=== PATIENT | male | born 1935 | race Caucasian/White ===

== ENCOUNTER 2017-12-22 11:45 | Emergency (ER) | payer MEDICARE, OTHER ==
[2017-12-22 13:53] LABS: Hematocrit 34 % (42-52); Hemoglobin 11.2 g/dl (14.0-18.0); Mean Corpuscular HGB Conc 33 g/dl (31-36); Mean Corpuscular Hemoglobin 29 pg (27-31); Mean Corpuscular Volume 86 fL (80-94); Mean Platelet Volume 9 um3 (7.4-10.4); Platelet Count 220 10^3/ul (150-450); Red Blood Count 3.94 10^6/ul (4.0-5.4); Red Cell Distribution Width 14 % (10.5-15); White Blood Count 11.5 10^3/ul (3.5-10.8)
[2017-12-22 14:09] LABS: EGFR Non-African American 31.2 (>60)
--- NOTE | 2017-12-22 15:51 | RAD ---
HISTORY: Left rib pain, status post trauma COMPARISONS: None TECHNIQUE: Multiple contiguous axial CT scans were obtained of the chest, abdomen, and pelvis, without intravenous contrast enhancement. Coronal and sagittal multiplanar reformations are submitted for review.. Oral contrast was not administered. FINDINGS: The study is limited by the lack of intravenous contrast. This limits evaluation of the solid organs and vasculature. CHEST NECK AND THYROID: The lower neck and thyroid are unremarkable. CHEST WALL: There is no lower cervical, axillary, or supraclavicular lymphadenopathy by size criteria. HEART AND PERICARDIUM: The heart is unremarkable. AORTA AND PULMONARY VASCULATURE: The aorta and pulmonary vasculature are normal. MEDIASTINUM: There is no mediastinal lymphadenopathy by size criteria. JANETT: Evaluation of the janett is limited by the lack of intravenous contrast. There is no obvious hilar lymphadenopathy by size criteria. AIRWAY AND ESOPHAGUS: The airway is unremarkable, without endobronchial filling defect. The esophagus is grossly normal. LUNG PARENCHYMA: There is linear pleural parenchymal scarring of the superior segment of the right lower lobe. PLEURA: No pleural abnormalities are noted. BONES AND SOFT TISSUES: Degenerative changes are noted of the spine. ABDOMEN/PELVIS: LIVER: The liver is normal in shape, size, contour, and attenuation. BILE DUCTS: There is no intrahepatic or extrahepatic biliary dilatation. GALLBLADDER: The gallbladder is normal, without pericholecystic inflammatory change. PANCREAS: The pancreas is normal, without mass or ductal dilatation. SPLEEN: Normal in size and appearance. UPPER GI TRACT: Evaluation of the gastrointestinal tract is limited by incomplete gastric distention. The upper GI tract is unremarkable. SMALL BOWEL & MESENTERY: The small bowel is normal in contour, course, and caliber. There is no obstruction or dilatation. COLON: The colon is normal in contour, course, caliber. There is no pericolonic inflammatory change. ADRENALS: Normal bilaterally. KIDNEYS: The parapelvic cyst is noted on the right. There is no appreciable hydronephrosis or nephrolithiasis. BLADDER: The bladder is smooth in contour. PELVIC ORGANS: The prostate is diffusely enlarged. The seminal vesicles are symmetric. AORTA: There is calcific atherosclerotic disease of the abdominal aorta and its branches, without aneurysmal dilatation IVC: Unremarkable LYMPH NODES: There is no lymphadenopathy by size criteria. ABDOMINAL WALL: There is no evidence for abdominal wall hernia. BONES AND SOFT TISSUES: Degenerative changes are noted. OTHER: None IMPRESSION: 1. NO ACUTE CT PATHOLOGY OF THE CHEST. 2. ENLARGED PROSTATE. 3. NO ACUTE CT PATHOLOGY OF THE ABDOMEN AND PELVIS.
[2017-12-22] MEDS ORDERED: traMADol TAB* 50 MG PO ONE (16:25)
[2017-12-22 17:04] VITALS: BP 142/77
--- NOTE | 2017-12-22 22:17 | ED ---
Chan Wheeler Thomas, scribed for Yanet Clement MD on 12/22/17 at 1552 . Complex/Multi-Sys Presentation - HPI Summary HPI Summary: The patient is an 82 year old male presenting to the emergency department complaining of left posterior rib cage pain that began yesterday after he slipped and fell on the ice and landed on his left side. The pain is constant. The pain is rated 10/10. The pain is aggravated by movement and is alleviated by nothing. The patient additionally complains of bloatedness. The patient denies fever, eye erythema, ear ache, shortness of breath, abdominal pain, dysuria, hematuria, edema, neck pain, rashes, bruises, headache, anxiety, and depression. He is on Eliquis. - History Of Current Complaint Chief Complaint: EDChestWallPain Time Seen by Provider: 12/22/17 12:49 Hx Obtained From: Patient Onset/Duration: Lasting Days - 1, Still Present Timing: Constant Severity Initially: Severe Location: Pain At: - left posterior rib cage Aggravating Factor(s): Movement Alleviating Factor(s): Nothing Associated Signs And Symptoms: Positive: Other - Left posterior rib cage pain, bloatedness; NEGATIVE: fever, eye erythema, ear ache, shortness of breath, abdominal pain, dysuria, hematuria, edema, neck pain, rashes, bruises, headache , anxiety, and depression - Allergies/Home Medications Allergies/Adverse Reactions: Allergies Allergy/AdvReac Type Severity Reaction Status Date / Time No Known Allergies Allergy Verified 12/22/17 12:12 PMH/Surg Hx/FS Hx/Imm Hx Sensory History: Denies: Hx Deafness Opthamlomology History: Denies: Hx Legally Blind EENT History: Denies: Hx Deafness - Immunization History Immunizations Up to Date: Yes Infectious Disease History: No Infectious Disease History: Denies: Traveled Outside the [place] in Last 30 Days - Family History Known Family History: Positive: Other - Patient denies relevant FHx - Social History Alcohol Use: None Substance Use Type: Reports: None Smoking Status (MU): Never Smoked Tobacco Review of Systems Negative: Fever Negative: Erythema Negative: Ear Ache Negative: Chest Pain Negative: Shortness Of Breath Positive: Other - Bloatedness. Negative: Abdominal Pain Negative: dysuria, hematuria Positive: Other - Rib cage pain; NEGATIVE: neck pain. Negative: Edema Negative: Rash, Bruising Negative: Headache Negative: Anxious, Depressed All Other Systems Reviewed And Are Negative: No Physical Exam - Summary Physical Exam Summary: Appearance: Alert, conversive, nontoxic appearing Skin: Warm, dry, no mottling, no rashes, no contusions HEENT: EOMI, PERRL, moist mucous membranes Neck: No masses on the neck, supple Respiratory: Clear to auscultation, breath sounds present, no rales, no rhonchi , no wheezes Cardiovascular: RRR, pulses are symmetrical in both lower and upper extremities Chest and Trunk: To the false ribs on the left, the posterior aspect is exquisitely tender. There is tenderness to the left inferior chest wall. Abdomen: Soft, non-tender Bowel Sounds: Present Musculoskeletal: No CVA tenderness, no obvious deformity, moving all extremities in a grossly normal manner Extremities: There is an abrasion to the left elbow. There is no bruising. Neurological: A&Ox3, CN II-XII Intact, moving all extremities symmetrically Psychiatric: Normal affect and mood Triage Information Reviewed: Yes Vital Signs On Initial Exam: Initial Vitals Temp Pulse Resp BP Pulse Ox 99.1 F 57 20 164/62 95 12/22/17 12:07 12/22/17 12:07 12/22/17 12:07 12/22/17 12:07 12/22/17 12:07 Vital Signs Reviewed: Yes Diagnostics - Vital Signs Vital Signs Temp Pulse Resp BP Pulse Ox 12/22/17 12:07 99.1 F 57 20 164/62 95 - Laboratory Lab Results: Lab Results 12/22/17 12/22/17 Range/Units 13:45 13:45 WBC 11.5 H (3.5-10.8) 10^3/ul RBC 3.94 L (4.0-5.4) 10^6/ul Hgb 11.2 L (14.0-18.0) g/dl Hct 34 L (42-52) % MCV 86 (80-94) fL MCH 29 (27-31) pg MCHC 33 (31-36) g/dl RDW 14 (10.5-15) % Plt Count 220 (150-450) 10^3/ul MPV 9 (7.4-10.4) um3 Sodium 136 (133-145) mmol/L Potassium 4.5 (3.5-5.0) mmol/L Chloride 103 (101-111) mmol/L Carbon Dioxide 24 (22-32) mmol/L Anion Gap 9 (2-11) mmol/L BUN 43 H (6-24) mg/dL Creatinine 2.06 H (0.67-1.17) mg/dL Est GFR ( Amer) 40.2 (>60) Est GFR (Non-Af Amer) 31.2 (>60) BUN/Creatinine Ratio 20.9 H (8-20) Glucose 102 H (70-100) mg/dL Calcium 9.4 (8.6-10.3) mg/dL Total Bilirubin 0.40 (0.2-1.0) mg/dL AST 20 (13-39) U/L ALT 16 (7-52) U/L Alkaline Phosphatase 59 (34-104) U/L Total Protein 7.1 (6.4-8.9) g/dL Albumin 4.0 (3.2-5.2) g/dL Globulin 3.1 (2-4) g/dL Albumin/Globulin Ratio 1.3 (1-3) Result Diagrams: 12/22/17 13:45 12/22/17 13:45 Lab Statement: Any lab studies that have been ordered have been reviewed, and results considered in the medical decision making process. - CT CT Chest/Abd/Pel CT Interpretation: No Acute Changes - 1. NO ACUTE CT PATHOLOGY OF THE CHEST. 2. ENLARGED PROSTATE. 3. NO ACUTE CT PATHOLOGY OF THE ABDOMEN AND PELVIS. Dr. Clement has reviewed this report. CT Interpretation Completed By: Radiologist Complex Multi-Symp Course/Dx Assessment/Plan: The patient is an 82 year old male presenting to the emergency department complaining of left posterior rib cage pain that began yesterday after he slipped and fell on the ice and landed on his left side. The patient was given Ultam. Bloodwork was obtained. CT Chest/Abdomen/Pelvis shows 1. NO ACUTE CT PATHOLOGY OF THE CHEST. 2. ENLARGED PROSTATE. 3. NO ACUTE CT PATHOLOGY OF THE ABDOMEN AND PELVIS. The patient is discharged home with diagnosis of soft tissue injury and contusion. - Diagnoses Provider Diagnoses: Soft tissue injury, Contusion Discharge - Discharge Plan Condition: Stable Disposition: HOME Prescriptions: traMADol TAB* [Ultram*] 50 mg PO Q6HR PRN #20 tab MDD 4 PRN Reason: Pain Patient Education Materials: Fall Prevention for Older Adults (ED), Chest Wall Pain (ED) Referrals: Non Staff,Doctor [Primary Care Provider] - Additional Instructions: follow up with your primary care physician. return if worse or any new symptoms. Take the tramadol for pain. The documentation as recorded by the Chan headley Thomas accurately reflects the service I personally performed and the decisions made by , Yanet Clement MD.
== END 2017-12-22 17:00 | disposition home or self-care (01) ==
LOC: ED 11:45
DX: S20.212A Contusion of left front wall of thorax, initial encounter (principal); W00.0XXA Fall on same level due to ice and snow, initial encounter; Y92.9 Unspecified place or not applicable
CPT/HCPCS: 36415; 71250; 74176; 80053; 85027; 99282

== ENCOUNTER 2017-12-25 17:46 | Emergency (ER) | payer MEDICARE, OTHER ==
[2017-12-25 21:59] LABS: ABS Basophils 0.1 10^3/ul (0-0.2); ABS Eosinophils 0.2 10^3/ul (0-0.6); ABS Lymphocytes 2.4 10^3/ul (1.0-4.8); ABS Monocytes 1.1 10^3/ul (0-0.8); ABS Neutrophils 7.9 10^3/ul (1.5-7.7); ABS Nucleated RBC 0 10^3/ul; Hematocrit 34 % (42-52); Hemoglobin 11.3 g/dl (14.0-18.0); Lymphocyte % 20.3 % (25-47); Mean Corpuscular HGB Conc 33 g/dl (31-36); Mean Corpuscular Hemoglobin 28 pg (27-31); Mean Corpuscular Volume 86 fL (80-94); Mean Platelet Volume 9 um3 (7.4-10.4); Nucleated Red Blood Cells % 0; Platelet Count 241 10^3/ul (150-450); Red Blood Count 3.98 10^6/ul (4.0-5.4); Red Cell Distribution Width 14 % (10.5-15); White Blood Count 11.6 10^3/ul (3.5-10.8)
[2017-12-25 22:16] LABS: INR 0.94 (0.77-1.02)
[2017-12-25 22:44] LABS: Urine Appearance Clear; Urine Blood Negative (Negative); Urine Color Yellow; Urine Ketones Negative (Negative); Urine Protein 2+(100 mg/dL) (Negative); Urine Specific Gravity 1.017 (1.010-1.030); Urine Urobilinogen Negative (Negative)
[2017-12-25] MEDS ORDERED: Mineral Oil ENEMA* 1 BOTTLE PR ONE (22:59)
[2017-12-26] MEDS ORDERED: Mineral Oil ENEMA* 1 BOTTLE PR ONE (01:55)
--- NOTE | 2017-12-26 02:41 | ED ---
Chan Wheeler Thomas, scribed for Gaudencio Adams on 12/25/17 at 2234 . GI/ HPI - HPI Summary HPI Summary: The patient is an 82 year old male presenting to the emergency department complaining of constipation that began 6 days ago. He attempted to manually decompact himself but was unsuccessful. He fell on the ice two days ago and injured his ribs. - History of Current Complaint Chief Complaint: EDGeneral Time Seen by Provider: 12/25/17 22:08 Stated Complaint: CONSTIPATION Hx Obtained From: Patient Onset/Duration: Started Days Ago - 6, Still Present Timing: Constant Severity: Moderate Current Severity: Moderate Pain Intensity: 0 Associated Signs and Symptoms: Positive: Other: - Constipation Aggravating Factor(s): Nothing Alleviating Factor(s): Nothing - Allergy/Home Medications Allergies/Adverse Reactions: Allergies Allergy/AdvReac Type Severity Reaction Status Date / Time No Known Allergies Allergy Verified 12/25/17 17:55 PMH/Surg Hx/FS Hx/Imm Hx Sensory History: Denies: Hx Legally Blind, Hx Deafness Opthamlomology History: Denies: Hx Legally Blind Infectious Disease History: No Infectious Disease History: Denies: Traveled Outside the [place] in Last 30 Days - Family History Known Family History: Positive: Other - Patient denies relevant FHx - Social History Alcohol Use: None Substance Use Type: Reports: None Smoking Status (MU): Never Smoked Tobacco Review of Systems Negative: Fever Positive: Other - Constipation All Other Systems Reviewed And Are Negative: Yes Physical Exam - Summary Physical Exam Summary: Appearance: Well appearing, no pain distress Skin: warm, dry, reflects adequate perfusion Head/face: normal Eyes: EOMI, ERYN ENT: normal Neck: supple, non-tender Respiratory: CTA, breath sounds present Cardiovascular: RRR, pulses symmetrical Abdomen: non-tender, soft Bowel: present Musculoskeletal: normal, strength/ROM intact Neuro: normal, sensory motor intact, A&Ox3 Triage Information Reviewed: Yes Vital Signs On Initial Exam: Initial Vitals Temp Pulse Resp BP Pulse Ox 98 F 58 16 162/64 97 12/25/17 17:55 12/25/17 17:55 12/25/17 17:55 12/25/17 17:55 12/25/17 17:55 Vital Signs Reviewed: Yes Diagnostics - Vital Signs Vital Signs Temp Pulse Resp BP Pulse Ox 12/25/17 20:00 99.3 F 52 16 188/67 98 12/25/17 17:55 98 F 58 16 162/64 97 - Laboratory Lab Results: Lab Results 12/25/17 12/25/17 12/25/17 Range/Units 21:40 21:40 21:40 WBC (3.5-10.8) 10^3/ul RBC (4.0-5.4) 10^6/ul Hgb (14.0-18.0) g/dl Hct (42-52) % MCV (80-94) fL MCH (27-31) pg MCHC (31-36) g/dl RDW (10.5-15) % Plt Count (150-450) 10^3/ul MPV (7.4-10.4) um3 Neut % (Auto) (38-83) % Lymph % (Auto) (25-47) % Aiken % (Auto) (1-9) % Eos % (Auto) (0-6) % Baso % (Auto) (0-2) % Absolute Neuts (auto) (1.5-7.7) 10^3/ul Absolute Lymphs (auto) (1.0-4.8) 10^3/ul Absolute Monos (auto) (0-0.8) 10^3/ul Absolute Eos (auto) (0-0.6) 10^3/ul Absolute Basos (auto) (0-0.2) 10^3/ul Absolute Nucleated RBC 10^3/ul Nucleated RBC % INR (Anticoag Therapy) 0.94 (0.77-1.02) APTT 30.5 (26.0-36.3) seconds Sodium 135 (133-145) mmol/L Potassium 4.1 (3.5-5.0) mmol/L Chloride 102 (101-111) mmol/L Carbon Dioxide 25 (22-32) mmol/L Anion Gap 8 (2-11) mmol/L BUN 34 H (6-24) mg/dL Creatinine 1.82 H (0.67-1.17) mg/dL Est GFR ( Amer) 46.3 (>60) Est GFR (Non-Af Amer) 36.0 (>60) BUN/Creatinine Ratio 18.7 (8-20) Glucose 82 (70-100) mg/dL Lactic Acid (0.5-2.0) mmol/L Calcium 9.4 (8.6-10.3) mg/dL Total Bilirubin 0.40 (0.2-1.0) mg/dL AST 18 (13-39) U/L ALT 15 (7-52) U/L Alkaline Phosphatase 54 (34-104) U/L Total Creatine Kinase 87 (10-223) U/L Troponin I 0.03 (<0.04) ng/mL B-Natriuretic Peptide 162 H ( - 100) pg/mL Total Protein 7.3 (6.4-8.9) g/dL Albumin 4.3 (3.2-5.2) g/dL Globulin 3.0 (2-4) g/dL Albumin/Globulin Ratio 1.4 (1-3) 12/25/17 12/25/17 Range/Units 21:40 21:43 WBC 11.6 H (3.5-10.8) 10^3/ul RBC 3.98 L (4.0-5.4) 10^6/ul Hgb 11.3 L (14.0-18.0) g/dl Hct 34 L (42-52) % MCV 86 (80-94) fL MCH 28 (27-31) pg MCHC 33 (31-36) g/dl RDW 14 (10.5-15) % Plt Count 241 (150-450) 10^3/ul MPV 9 (7.4-10.4) um3 Neut % (Auto) 67.5 (38-83) % Lymph % (Auto) 20.3 L (25-47) % Aiken % (Auto) 9.7 H (1-9) % Eos % (Auto) 2.0 (0-6) % Baso % (Auto) 0.5 (0-2) % Absolute Neuts (auto) 7.9 H (1.5-7.7) 10^3/ul Absolute Lymphs (auto) 2.4 (1.0-4.8) 10^3/ul Absolute Monos (auto) 1.1 H (0-0.8) 10^3/ul Absolute Eos (auto) 0.2 (0-0.6) 10^3/ul Absolute Basos (auto) 0.1 (0-0.2) 10^3/ul Absolute Nucleated RBC 0 10^3/ul Nucleated RBC % 0 INR (Anticoag Therapy) (0.77-1.02) APTT (26.0-36.3) seconds Sodium (133-145) mmol/L Potassium (3.5-5.0) mmol/L Chloride (101-111) mmol/L Carbon Dioxide (22-32) mmol/L Anion Gap (2-11) mmol/L BUN (6-24) mg/dL Creatinine (0.67-1.17) mg/dL Est GFR ( Amer) (>60) Est GFR (Non-Af Amer) (>60) BUN/Creatinine Ratio (8-20) Glucose (70-100) mg/dL Lactic Acid 0.7 (0.5-2.0) mmol/L Calcium (8.6-10.3) mg/dL Total Bilirubin (0.2-1.0) mg/dL AST (13-39) U/L ALT (7-52) U/L Alkaline Phosphatase (34-104) U/L Total Creatine Kinase (10-223) U/L Troponin I (<0.04) ng/mL B-Natriuretic Peptide ( - 100) pg/mL Total Protein (6.4-8.9) g/dL Albumin (3.2-5.2) g/dL Globulin (2-4) g/dL Albumin/Globulin Ratio (1-3) Result Diagrams: 12/25/17 21:43 12/25/17 21:40 Lab Statement: Any lab studies that have been ordered have been reviewed, and results considered in the medical decision making process. - Radiology XR Abdomen Xray Interpretation: No Acute Changes - Fecal impaction Radiology Interpretation Completed By: ED Physician GIGU Course/Dx - Course Assessment/Plan: The patient is an 82 year old male presenting to the emergency department complaining of constipation that began 6 days ago. Bloodwork and urinalysis were obtained. XR Abdomen shows fecal impaction. The patient was given a mineral oil enema. The patient is diagnosed with constipation. The patient is instructed to follow up with primary care. - Diagnoses Provider Diagnoses: Constipation Discharge - Discharge Plan Condition: Stable Disposition: HOME Patient Education Materials: High Fiber Diet (ED), Constipation (ED) Referrals: [facility] [facility]ERR[facility] [Outside] - 2 Days Additional Instructions: Follow up with your primary care physician in the next couple of days. If you do not have one, you can use the [facility] [place] referral service to find one and make an appointment. Return to the emergency department for any new or worsening symptoms. The documentation as recorded by the Chan headley Thomas accurately reflects the service I personally performed and the decisions made by me, Gaudencio Adams.
[2017-12-26 02:54] VITALS: BP 0/0
--- NOTE | 2017-12-26 07:42 | RAD ---
HISTORY: Constipation COMPARISONS: None VIEWS: Frontal views of the abdomen. FINDINGS: BOWEL: There is a nonobstructive bowel gas pattern. There is a large amount of stool within the colon. CALCULI: There are no abnormal calculi. BONES AND SOFT TISSUES: Degenerative changes are noted. OTHER FINDINGS: The lung bases are clear. There is no subphrenic gas. IMPRESSION: NONOBSTRUCTIVE BOWEL GAS PATTERN. LARGE AMOUNT OF STOOL WITHIN THE COLON.
== END 2017-12-26 02:53 | disposition home or self-care (01) ==
LOC: ED 17:46
DX: K59.00 Constipation, unspecified (principal)
CPT/HCPCS: 36415; 74018; 80053; 81003; 81015; 82550; 83605; 83880; 84484; 85025; 85610; 85730; 99282; A9270-GY